=== PATIENT | female | born 1985 | race Caucasian/White ===

== ENCOUNTER 2016-04-15 16:49 | Inpatient (IN) | payer OTHER ==
[2016-04-15 17:20] VITALS: BMI 41.9
[2016-04-15] MEDS ORDERED: NICOTINE POLACRILEX 2 MG GUM BC PRN (20:04)
[2016-04-15] MEDS ORDERED: ACETAMINOPHEN 325 MG TABLET (FP) PO PRN (20:04)
[2016-04-15] MEDS ORDERED: guaiFENesin/D-METHORPHAN HB 10 ML UNIT-DOSE CUPS PO PRN (20:04)
[2016-04-15] MEDS ORDERED: MAGNESIUM CITRATE 300 ML BOTTLE PO PRN (20:04)
[2016-04-15] MEDS ORDERED: MAGNESIUM HYDROX 2400MG/30ML ORAL SUSPENSION 30 ML CUP PO PRN (20:04)
[2016-04-15] MEDS ORDERED: MENTHOL/PHENOL 1 EACH UD MM PRN (20:04)
[2016-04-15] MEDS ORDERED: P-EPHED 60MG/TRIPROLIDI 2.5MG TABLET PO PRN (20:04)
[2016-04-15] MEDS ORDERED: METHADONE HCL 10 MG TABLET (FOR DETOX USE ONLY) PO ONE ×2 (20:04→23:00)
[2016-04-15] MEDS ORDERED: diazePAM 5 MG TABLET PO ONE (20:04)
[2016-04-15] MEDS ORDERED: LOPERAMIDE HCL 2 MG CAPSULE PO PRN (20:04)
[2016-04-15] MEDS ORDERED: IBUPROFEN 400 MG TABLET (FP) PO PRN (20:04)
--- NOTE | 2016-04-15 20:04 | HP ---
COWS - Scale Resting Pulse: 1= [place] 81-100 Sweatin=Flushed/Facial Moisture Restless Observation: 3= Extraneous Movement Pupil Size: 1= Pupils >than Normal Bone or Joint Aches: 2= Severe Diffuse Aches Runny Nose/ Eye Tearin= Runny Nose/Eyes GI Upset > 30mins: 3= Vomiting/Diarrhea Tremor Observation: 2= Slight Tremor Visible Yawning Observation: 1= 1-2x During Session Anxiety or Irritability: 2=Irritable/Anxious Goose Flesh Skin: 3=Piloerection COWS Score: 22 CIWA Score - CIWA Score Nausea/Vomitin Muscle Tremors: 4-Moderate,w/Arms Extend Anxiety: 4-Mod. Anxious/Guarded Agitation: 4-Moderately Restless Paroxysmal Sweats: 2 Orientation: 1-Uncertain about Date Tacttile Disturbances: 0-None Auditory Disturbances: 0-None Visual Disturbances: 0-None Headache: 3-Moderate CIWA-Ar Total Score: 20 Admission ROS BHS - HPI Chief Complaint: WITHDRAWAL SX Allergies/Adverse Reactions: Allergies Allergy/AdvReac Type Severity Reaction Status Date / Time No Known Allergies Allergy Verified 04/15/16 17:35 History of Present Illness: 31 YEARS OLD FEMALE WITH LONG HISTORY OF HEROIN NICOTINE XANAX DEPENDENCE, HAS ASTHMA DENIES MENTAL ILLNESS IS ADMITTED TO DETOX Exam Limitations: No Limitations - Ebola screening Have you traveled outside of the country in the last 21 days: No Have you had contact with anyone from an Ebola affected area: No Have you been sick,other than usual withdrawal symptoms: No Do you have a fever: No - Review of Systems Constitutional: Chills, Changes in sleep, Weight Stable EENT: reports: No Symptoms Reported Respiratory: reports: No Symptoms reported Cardiac: reports: Palpitations GI: reports: Diarrhea, Nausea, Poor Fluid Intake, Vomiting, Abdominal cramping : reports: No Symptoms Reported Musculoskeletal: reports: Back Pain, Joint Pain, Muscle Pain, Neck Pain Integumentary: reports: No Symptoms Reported Neuro: reports: Tremors Endocrine: reports: No Symptoms Reported Hematology: reports: No Symptoms Reported Psychiatric: reports: Judgement Intact, Mood/Affect Appropiate Other Systems: Reviewed and Negative Patient History - Patient Medical History Hx Anemia: No Hx Asthma: Yes (Pt is on MDI) Hx Chronic Obstructive Pulmonary Disease (COPD): No Hx Cancer: No Hx Cardiac Disorders: No Hx Congestive Heart Failure: No Hx Hypertension: No Hx Hypercholesterolemia: No Hx Pacemaker: No HX Cerebrovascular Accident: No Hx Seizures: No Hx Dementia: No Hx Diabetes: No Hx Gastrointestinal Disorders: No Hx Liver Disease: No Hx Genitourinary Disorders: No Hx Sexually Transmitted Disorders: No Hx Renal Disease (ESRD): No Hx Thyroid Disease: No Hx Human Immunodeficiency Virus (HIV): No Hx Hepatitis C: No Hx Depression: No Hx Suicide Attempt: No Hx Bipolar Disorder: No Hx Schizophrenia: No - Patient Surgical History Past Surgical History: Yes Hx Neurologic Surgery: No Hx Cataract Extraction: No Hx Cardiac Surgery: No Hx Lung Surgery: No Hx Breast Surgery: No Hx Breast Biopsy: No Hx Abdominal Surgery: No Hx Appendectomy: No Hx Cholecystectomy: Yes (2007) Hx Genitourinary Surgery: No Hx Section: No Hx Orthopedic Surgery: No Hx Hysterectomy: No Anesthesia Reaction: No - PPD History Previous Implant?: Yes Documented Results: Negative w/o proof Implanted On Prior R Admission?: No PPD to be Administered?: Yes - Reproductive History Patient is a Female of Child Bearing Age (11 -55 yrs old): Yes Last Menstrual Period: 03/25/16 Patient : No - Smoking Cessation Smoking history: Current every day smoker Have you smoked in the past 12 months: Yes Aproximately how many cigarettes per day: 10 Hx Chewing Tobacco Use: No Initiated information on smoking cessation: Yes 'Breaking Loose' booklet given: 04/15/16 - Substance & Tx. History Hx Alcohol Use: No Hx Substance Use: Yes Substance Use Type: Heroin, Tranquilizers Hx Substance Use Treatment: No - Substances Abused Heroin Route: Inhalation Frequency: Daily Amount used: 20-30 BAGS Age of first use: 29 Date of Last Use: 04/14/16 klonopin Route: Oral Frequency: Daily Amount used: 6-8mg Age of first use: 29 Date of Last Use: 04/15/16 Family Disease History - Family Disease History Family Disease History: Diabetes: Mother, Heart Disease: Brother, CA: Father, Respiratory: Sister Admission Physical Exam BHS - Vital Signs Vital Signs: Vital Signs - 24 hr 04/15/16 17:17 Temperature 97.2 F L Pulse Rate 95 H Respiratory 20 Rate Blood Pressure 132/72 - Physical General Appearance: Yes: Nourished, Appropriately Dressed, Moderate Distress, Obese, Tremorous, Irritable, Sweating, Anxious HEENTM: Yes: Hearing grossly Normal, Normal ENT Inspection, Normocephalic, Normal Voice Respiratory: Yes: Chest Non-Tender, Lungs Clear, Normal Breath Sounds, No Respiratory Distress, No Accessory Muscle Use Neck: Yes: Supple, Trachea in good position Breast: Yes: Breasts Symetrical Cardiology: Yes: Regular Rhythm, Regular Rate, S1, S2 Abdominal: Yes: Non Tender, Soft Genitourinary: Yes: Within Normal Limits Back: Yes: Normal Inspection Musculoskeletal: Yes: full range of Motion, Gait Steady Extremities: Yes: Normal Range of Motion, Non-Tender, Tremors Neurological: Yes: Alert, Motor Strength 5/5, Normal Response Integumentary: Yes: Warm, Track [place] (OLD) Lymphatic: Yes: Within Normal Limits - Diagnostic (1) Opioid dependence with withdrawal Current Visit: Yes Status: Acute (2) Sedative, hypnotic or anxiolytic dependence with withdrawal, uncomplicated Current Visit: Yes Status: Acute (3) Asthma Current Visit: Yes Status: Acute Qualifiers: Asthma severity: mild intermittent Asthma complication type: with status asthmaticus Qualified Code(s): J45.22 - Mild intermittent asthma with status asthmaticus (4) Nicotine dependence Current Visit: Yes Status: Acute Qualifiers: Nicotine product type: cigarettes Substance use status: in withdrawal Qualified Code(s): F17.213 - Nicotine dependence, cigarettes, with withdrawal Cleared for Admission [facility] - Detox or Rehab [facility] Level of Care: Medically Managed Detox Regimen/Protocol: Methadone/Valium [facility] Breath Alcohol Content Breath Alcohol Content: 0 Urine Pregancy Test - Result Urine Test Results: Negative- NO Line Present Urine Drug Screen - Results Drug Screen Negative: No Urine Drug Screen Results: OPI-Opiates, BZO-Benzodiazepines
[2016-04-15] MEDS ORDERED: cloNIDine HCL 0.1 MG TABLET PO PRN (20:06)
[2016-04-15] MEDS ORDERED: ALBUTEROL SO4 6.7 GM HFA INHALER IH PRN (20:13)
[2016-04-15] MEDS: ONDANSETRON *ODT* 4 MG TABLET SL PRN (21:14)
[2016-04-15] MEDS: diazePAM 5 MG TABLET PO SCH (22:33)
[2016-04-15] MEDS: THIAMINE HCL 100 MG TABLET (FP) PO SCH (22:33)
[2016-04-15 23:13] LABS: URINE APPEARANCE CLEAR; URINE BILIRUBIN NEGATIVE (NEGATIVE); URINE BLOOD NEGATIVE (NEGATIVE); URINE COLOR YELLOW; URINE GLUCOSE (UA) NEGATIVE (NEGATIVE); URINE KETONE NEGATIVE (NEGATIVE); URINE LEUK ESTERASE NEGATIVE (NEGATIVE); URINE NITRITE NEGATIVE (NEGATIVE); URINE PROTEIN NEGATIVE (NEGATIVE); URINE UROBILINOGEN NEGATIVE E.U./dl (0.2-1.0)
[2016-04-16] MEDS: TRIMETHOBENZAMIDE HCL 200MG/2ML INJ IM PRN ×2 (00:47→09:03)
[2016-04-16] MEDS: diazePAM 5 MG TABLET PO PRN ×3 (01:35→19:21)
[2016-04-16] MEDS: diphenhydrAMINE HCL 50 MG CAPSULE PO PRN ×2 (01:35→22:29)
[2016-04-16] MEDS: diazePAM 5 MG TABLET PO SCH ×3 (05:52→22:29)
[2016-04-16] MEDS ORDERED: METHADONE HCL 10 MG TABLET (FOR DETOX USE ONLY) PO SCH (10:00)
[2016-04-16] MEDS: PRENATAL VITAMINS W/ FOLIC ACID TABLET (FP) PO SCH (10:14)
[2016-04-16] MEDS: NICOTINE 14 MG/24 HOURS TOPICAL PATCH TD SCH (10:14)
[2016-04-16 10:22] LABS: ALBUMIN 3.5 g/dl (3.4-5.0); CALCIUM 9.2 mg/dL (8.5-10.1); GLUCOSE,RANDOM 107 mg/dL (74-106)
[2016-04-16 10:26] LABS: MCH 30.2 pg (25.7-33.7); MCHC 32.8 g/dl (32.0-36.0); MEAN CELL VOLUME 92.1 fl (80-96); MEAN PLT VOLUME 8.4 fl (7.5-11.1); PLATELET COUNT 277 K/MM3 (134-434); RDW 13.5 % (11.6-15.6); WHITE BLOOD COUNT 14.8 K/mm3 (4.0-10.0)
[2016-04-16 10:27] LABS: ALK PHOS 69 U/L (45-117); ANION GAP 12 (8-16); BILIRUBIN,TOTAL 1.1 mg/dL (0.2-1.0); CO2 25 mmol/L (21-32); CREATININE 0.6 mg/dL (0.55-1.02); SGOT/AST 7 U/L (15-37); SGPT/ALT 15 U/L (12-78); TOT PROT 6.9 g/dl (6.4-8.2)
--- NOTE | 2016-04-16 10:32 | PN ---
[facility] CIWA - CIWA Score Nausea/Vomitin-Mild Nausea/No Vomiting Muscle Tremors: 4-Moderate,w/Arms Extend Anxiety: 3 Agitation: 4-Moderately Restless Paroxysmal Sweats: 3 Orientation: 0-Oriented Tacttile Disturbances: 0-None Auditory Disturbances: 0-None Visual Disturbances: 0-None Headache: 1-Very Mild CIWA-Ar Total Score: 16 BHS COWS - Scale Resting Pulse: 0= [place] 80 or Below Sweatin=Flushed/Facial Moisture Restless Observation: 1= Difficult to Sit Still Pupil Size: 0= Normal to Room Light Bone or Joint Aches: 2= Severe Diffuse Aches Runny Nose/ Eye Tearin= Nasal Congestion GI Upset > 30mins: 2= Nausea/Diarrhea Tremor Observation of Outstretched Hands: 2= Slight Tremor Visible Yawning Observation: 2= >3x During Session Anxiety or Irritability: 2=Irritable/Anxious Goose Flesh Skin: 0=Smooth Skin COWS Score: 14 S Progress Note (SOAP) Subjective: nausea vomiting sweats shakes interrupted sleep agitation anxiety body aches Objective: 04/16/16 10:30 Vital Signs Temperature 97.7 F 04/16/16 07:00 Pulse Rate 72 04/16/16 07:00 Respiratory Rate 18 04/16/16 07:00 Blood Pressure 122/79 04/16/16 07:00 O2 Sat by Pulse Oximetry (%) Laboratory Tests 04/15/16 04/16/16 04/16/16 23:00 07:00 07:00 WBC 14.8 H RBC 4.60 Hgb 13.9 Hct 42.3 MCV 92.1 MCHC 32.8 RDW 13.5 Plt Count 277 MPV 8.4 Sodium 144 Potassium 3.9 Chloride 107 BUN 9 Random Glucose 107 H Calcium 9.2 Albumin 3.5 Urine Color Yellow Urine Appearance Clear Urine pH 8.0 Ur Specific [place] 1.023 Urine Protein Negative Urine Glucose (UA) Negative Urine Ketones Negative Urine Blood Negative Urine Nitrite Negative Urine Bilirubin Negative Urine Urobilinogen Negative Ur Leukocyte Esterase Negative labs pending awake/alert lying in bed no acute distress Assessment: 04/16/16 10:31 withdrawal sx Plan: continue detox increase fluids labs pending reglan po before meals
[2016-04-16] MEDS: METOCLOPRAMIDE HCL 10 MG TABLET (FP) PO SCH ×2 (10:52→17:28)
--- NOTE | 2016-04-16 17:27 | PN ---
S Progress Note Note: RECEIVED NURSE CALL PATIENT VOMITED X 1 UNDIGESTED FOOD REGLAN 10 MG WILL BE ADMINISTERED CONTINUE DETOX
--- NOTE | 2016-04-16 17:43 | EKG ---
Test Reason : Blood Pressure : / mmHG Vent. Rate : 077 BPM Atrial Rate : 077 BPM P-R Int : 174 ms QRS Dur : 092 ms QT Int : 424 ms P-R-T Axes : 049 028 013 degrees QTc Int : 479 ms NORMAL SINUS RHYTHM SEPTAL INFARCT , AGE UNDETERMINED ABNORMAL ECG NO PREVIOUS ECGS AVAILABLE Confirmed by ZACARIAS WILSON MD ([id number]) on 04/16/2016 5:43:25 PM Referred By: Confirmed By:ZACARIAS WILSON MD
[2016-04-16] MEDS: ONDANSETRON *ODT* 4 MG TABLET SL PRN (18:08)
[2016-04-16] MEDS: MAG HYDROX/AL HYDROX/SIMETH 30 ML UNIT-DOSE CUP PO PRN (19:18)
[2016-04-16] MEDS: THIAMINE HCL 100 MG TABLET (FP) PO SCH (22:29)
[2016-04-17] MEDS: MAG HYDROX/AL HYDROX/SIMETH 30 ML UNIT-DOSE CUP PO PRN (00:42)
[2016-04-17] MEDS: diphenhydrAMINE HCL 50 MG CAPSULE PO PRN ×2 (00:42→23:40)
[2016-04-17] MEDS: diazePAM 5 MG TABLET PO PRN ×5 (00:42→23:40)
[2016-04-17] MEDS: METOCLOPRAMIDE HCL 10 MG TABLET (FP) PO SCH ×3 (08:00→17:10)
[2016-04-17] MEDS: METHADONE HCL 5 MG TABLET (FOR DETOX USE ONLY) PO SCH (10:08)
[2016-04-17] MEDS: PRENATAL VITAMINS W/ FOLIC ACID TABLET (FP) PO SCH (10:09)
[2016-04-17] MEDS: diazePAM 5 MG TABLET PO SCH ×2 (10:09→22:36)
[2016-04-17] MEDS: NICOTINE 14 MG/24 HOURS TOPICAL PATCH TD SCH ×2 (10:33→14:11)
[2016-04-17] MEDS ORDERED: PANTOPRAZOLE 40 MG TABLET (FP) PO ONE (10:55)
--- NOTE | 2016-04-17 13:19 | PN ---
[facility] CIWA - CIWA Score Nausea/Vomitin Muscle Tremors: 3 Anxiety: 3 Agitation: 2 Paroxysmal Sweats: 2 Orientation: 0-Oriented Tacttile Disturbances: 1-Very Mild Itch/Numbness Auditory Disturbances: 1-Very Mild Visual Disturbances: 1-Very Mild Sensitivity Headache: 2-Mild CIWA-Ar Total Score: 18 BHS COWS - Scale Resting Pulse: 1= [place] 81-100 Sweatin=Flushed/Facial Moisture Restless Observation: 3= Extraneous Movement Pupil Size: 1= Pupils >than Normal Bone or Joint Aches: 2= Severe Diffuse Aches Runny Nose/ Eye Tearin= Runny Nose/Eyes GI Upset > 30mins: 2= Nausea/Diarrhea Tremor Observation of Outstretched Hands: 2= Slight Tremor Visible Yawning Observation: 1= 1-2x During Session Anxiety or Irritability: 2=Irritable/Anxious Goose Flesh Skin: 0=Smooth Skin COWS Score: 18 S Progress Note (SOAP) Subjective: ALERT,IRRITABLE,ANXIOUS,INTERRUPTED SLEEP,TREMOR,PAIN IN THE BODY Objective: 04/17/16 13:17 Vital Signs Temperature 98.2 F 04/17/16 10:18 Pulse Rate 53 L 04/17/16 10:18 Respiratory Rate 18 04/17/16 10:18 Blood Pressure 131/79 04/17/16 10:18 O2 Sat by Pulse Oximetry (%) EKG NSR,INVERTED T IN 3 NO CHEST PAIN,NO SOB,NO DIZZINESS Laboratory Last Values WBC 14.8 K/mm3 (4.0-10.0) H 04/16/16 07:00 RBC 4.60 M/mm3 (3.60-5.2) 04/16/16 07:00 Hgb 13.9 GM/dL (10.7-15.3) 04/16/16 07:00 Hct 42.3 % (32.4-45.2) 04/16/16 07:00 MCV 92.1 fl (80-96) 04/16/16 07:00 MCHC 32.8 g/dl (32.0-36.0) 04/16/16 07:00 RDW 13.5 % (11.6-15.6) 04/16/16 07:00 Plt Count 277 K/MM3 (134-434) 04/16/16 07:00 MPV 8.4 fl (7.5-11.1) 04/16/16 07:00 Sodium 144 mmol/L (136-145) 04/16/16 07:00 Potassium 3.9 mmol/L (3.5-5.1) 04/16/16 07:00 Chloride 107 mmol/L (98-107) 04/16/16 07:00 Carbon Dioxide 25 mmol/L (21-32) 04/16/16 07:00 Anion Gap 12 (8-16) 04/16/16 07:00 BUN 9 mg/dL (7-18) 04/16/16 07:00 Creatinine 0.6 mg/dL (0.55-1.02) 04/16/16 07:00 Creat Clearance w eGFR > 60 (>60) 04/16/16 07:00 Random Glucose 107 mg/dL (74-106) H 04/16/16 07:00 Calcium 9.2 mg/dL (8.5-10.1) 04/16/16 07:00 Total Bilirubin 1.1 mg/dL (0.2-1.0) H 04/16/16 07:00 AST 7 U/L (15-37) L 04/16/16 07:00 ALT 15 U/L (12-78) 04/16/16 07:00 Alkaline Phosphatase 69 U/L (45-117) 04/16/16 07:00 Total Protein 6.9 g/dl (6.4-8.2) 04/16/16 07:00 Albumin 3.5 g/dl (3.4-5.0) 04/16/16 07:00 Urine Color Yellow 04/15/16 23:00 Urine Appearance Clear 04/15/16 23:00 Urine pH 8.0 (5.0-8.0) 04/15/16 23:00 Ur Specific [place] 1.023 (1.001-1.035) 04/15/16 23:00 Urine Protein Negative (NEGATIVE) 04/15/16 23:00 Urine Glucose (UA) Negative (NEGATIVE) 04/15/16 23:00 Urine Ketones Negative (NEGATIVE) 04/15/16 23:00 Urine Blood Negative (NEGATIVE) 04/15/16 23:00 Urine Nitrite Negative (NEGATIVE) 04/15/16 23:00 Urine Bilirubin Negative (NEGATIVE) 04/15/16 23:00 Urine Urobilinogen Negative E.U./dl (0.2-1.0) 04/15/16 23:00 Ur Leukocyte Esterase Negative (NEGATIVE) 04/15/16 23:00 RPR Titer Nonreactive (NONREACTIVE) 04/16/16 07:00 Assessment: 04/17/16 13:18 WITHDRAWAL SYMPTOM Plan: CONTINUE DETOX,ENCOURAGE ORAL FLUID,REPEAT CBC IN AM
[2016-04-17] MEDS: THIAMINE HCL 100 MG TABLET (FP) PO SCH (22:35)
[2016-04-18] MEDS: METOCLOPRAMIDE HCL 10 MG TABLET (FP) PO SCH ×3 (06:28→18:55)
[2016-04-18] MEDS: diazePAM 5 MG TABLET PO PRN ×2 (09:23→18:21)
[2016-04-18 09:29] LABS: PLATELET COUNT 245 K/MM3 (134-434); RDW 13.2 % (11.6-15.6); WHITE BLOOD COUNT 5.3 K/mm3 (4.0-10.0)
--- NOTE | 2016-04-18 10:09 | CONSULT ---
[facility] Psychiatric Consult - Data Date of interview: 04/18/16 Admission source: [facility] Identifying data: This is 31 years old female with no psychiatric hospitalization history intoxicated with : Klonopin,. Heropn and Nicotine. As per nursing stuff patient asking psychiatric evaluation for anxiety Substance Abuse History: - Smoking Cessation. Smoking history: Current every day smoker. Have you smoked in the past 12 months: Yes. Aproximately how many cigarettes per day: 10. Hx Chewing Tobacco Use: No. Initiated information on smoking cessation: Yes. 'Breaking Loose' booklet given: 04/15/16. - Substance & Tx. History. Hx Alcohol Use: No. Hx Substance Use: Yes. Substance Use Type : Heroin, Tranquilizers. Hx Substance Use Treatment: No. - Substances Abused. Heroin. Route: Inhalation. Frequency: Daily. Amount used: 20-30 BAGS. Age of first use: 29. Date of Last Use: 04/14/16. klonopin. Route: Oral. Frequency: Daily. Amount used: 6-8mg. Age of first use: 29. Date of Last Use : 04/15/16 Medical History: Obesity Psychiatric History: Patient reports severe anxiety , asking for opharmacological intervention, reports not sleeping at all and asking for help. Reports no medicastions taking prior to admission. Rep[orets good reports to Seroquel for insomnia in trevor past (200mg) Physical/Sexual Abuse/Trauma History: Denies Additional Comment: Vistaril 50mg po q6 for anxiety. Seroquel 200mg po qhs Mental Status Exam - Mental Status Exam Alert and Oriented to: Person Cognitive Function: Fair Patient Appearance: Unkempt Mood: Anxious Affect: Mood Congruent Patient Behavior: Cooperative Speech Pattern: Appropriate Voice Loudness: Normal Thought Process: Goal Oriented Thought Disorder: Being Controlled Hallucinations: Denies Suicidal Ideation: Denies Homicidal Ideation: Denies Insight/Judgement: Fair Sleep: Difficulty falling asleep Appetite: Weight gain Muscle strength/Tone: Normal Gait/Station: Normal Additional Comments: Vistaril 50mg po q6 for anxiety. Seroquel 200mg po qhs Psychiatric Findings - Problem List ([place] 1, 2,3) (1) Nicotine dependence Current Visit: Yes Status: Acute Qualifiers: Nicotine product type: cigarettes Substance use status: in withdrawal Qualified Code(s): F17.213 - Nicotine dependence, cigarettes, with withdrawal (2) Opioid dependence with withdrawal Current Visit: Yes Status: Acute (3) Sedative, hypnotic or anxiolytic dependence with withdrawal, uncomplicated Current Visit: Yes Status: Acute (4) Opioid-induced sleep disorder Current Visit: Yes Status: Acute (5) Drug-induced mood disorder Current Visit: Yes Status: Acute - Initial Treatment Plan Initial Treatment Plan: Vistaril 50mg po q6 for anxiety. Seroquel 200mg po qhs
[2016-04-18] MEDS: PRENATAL VITAMINS W/ FOLIC ACID TABLET (FP) PO SCH (10:44)
[2016-04-18] MEDS: METHADONE HCL 5 MG TABLET (FOR DETOX USE ONLY) PO SCH (10:44)
[2016-04-18] MEDS: diazePAM 5 MG TABLET PO SCH ×2 (10:45→22:19)
[2016-04-18] MEDS: PANTOPRAZOLE 40 MG TABLET (FP) PO SCH (10:45)
[2016-04-18] MEDS: NICOTINE 14 MG/24 HOURS TOPICAL PATCH TD SCH (10:47)
[2016-04-18] MEDS: hydrOXYzine PAMOATE 50 MG CAPSULE (FP) PO PRN ×2 (13:08→22:21)
--- NOTE | 2016-04-18 14:02 | PN ---
BHS Progress Note (SOAP) Subjective: anxiety sweats body aches no N/V Objective: 04/18/16 14:01 Vital Signs Temperature 98.1 F 04/18/16 10:19 Pulse Rate 55 L 04/18/16 10:19 Respiratory Rate 18 04/18/16 10:19 Blood Pressure 123/69 04/18/16 10:19 O2 Sat by Pulse Oximetry (%) Laboratory Tests 04/15/16 04/16/16 04/16/16 23:00 07:00 07:00 WBC 14.8 H RBC 4.60 Hgb 13.9 Hct 42.3 MCV 92.1 MCHC 32.8 RDW 13.5 Plt Count 277 MPV 8.4 Sodium 144 Potassium 3.9 Chloride 107 Carbon Dioxide 25 Anion Gap 12 BUN 9 Creatinine 0.6 Creat Clearance w eGFR > 60 Random Glucose 107 H Calcium 9.2 Total Bilirubin 1.1 H AST 7 L ALT 15 Alkaline Phosphatase 69 Total Protein 6.9 Albumin 3.5 Urine Color Yellow Urine Appearance Clear Urine pH 8.0 Ur Specific [place] 1.023 Urine Protein Negative Urine Glucose (UA) Negative Urine Ketones Negative Urine Blood Negative Urine Nitrite Negative Urine Bilirubin Negative Urine Urobilinogen Negative Ur Leukocyte Esterase Negative RPR Titer 04/16/16 04/18/16 07:00 06:30 WBC 5.3 D RBC 3.98 Hgb 12.3 D Hct 37.4 MCV 94.0 MCHC 33.0 RDW 13.2 Plt Count 245 MPV 9.0 Sodium Potassium Chloride Carbon Dioxide Anion Gap BUN Creatinine Creat Clearance w eGFR Random Glucose Calcium Total Bilirubin AST ALT Alkaline Phosphatase Total Protein Albumin Urine Color Urine Appearance Urine pH Ur Specific [place] Urine Protein Urine Glucose (UA) Urine Ketones Urine Blood Urine Nitrite Urine Bilirubin Urine Urobilinogen Ur Leukocyte Esterase RPR Titer Nonreactive awake/alert ambulating no acute distress Assessment: 04/18/16 14:02 withdrawal sx Plan: continue detox increase fluids
[2016-04-18] MEDS ORDERED: QUEtiapine FUMARATE 200 MG TABLET PO SCH (22:00)
[2016-04-18] MEDS: THIAMINE HCL 100 MG TABLET (FP) PO SCH (22:18)
[2016-04-19] MEDS: hydrOXYzine PAMOATE 50 MG CAPSULE (FP) PO PRN ×2 (05:47→10:20)
[2016-04-19] MEDS: METOCLOPRAMIDE HCL 10 MG TABLET (FP) PO SCH ×2 (07:42→11:06)
[2016-04-19] MEDS ORDERED: METHADONE HCL 10 MG TABLET (FOR DETOX USE ONLY) PO SCH (10:00)
[2016-04-19] MEDS ORDERED: diazePAM 5 MG TABLET PO SCH (10:00)
[2016-04-19] MEDS: PANTOPRAZOLE 40 MG TABLET (FP) PO SCH (10:18)
[2016-04-19 10:38] VITALS: BP 120/74; PULSE 86; TEMP 99.3
[2016-04-19] MEDS: NICOTINE 14 MG/24 HOURS TOPICAL PATCH TD SCH (11:05)
[2016-04-19] MEDS: PRENATAL VITAMINS W/ FOLIC ACID TABLET (FP) PO SCH (11:06)
--- NOTE | 2016-04-19 11:43 | DS ---
[facility] Detox Discharge Summary Admission Date: 04/15/16 Discharge Date: 04/19/16 - History Present History: Opioid Dependence, Sedative Dependence - Physical Exam Results Vital Signs: Vital Signs Temperature 99.3 F 04/19/16 10:37 Pulse Rate 86 04/19/16 10:37 Respiratory Rate 18 04/19/16 10:37 Blood Pressure 120/74 04/19/16 10:37 O2 Sat by Pulse Oximetry (%) - Treatment Hospital Course: Detox Protocol Followed, Detoxed Safely, Responded well, Discharged Condition Good, Rehab Referral Accepted - Medication Discharge Medications: Ambulatory Orders Albuterol Sulfate Inhaler - [Ventolin Hfa Inhaler -] 2 inh PO Q4H PRN 04/15/16 Hydroxyzine Pamoate [Vistaril -] 50 mg PO Q4H PRN #60 capsule 04/18/16 Quetiapine Fumarate [Seroquel -] 200 mg PO HS #30 tab 04/18/16 - Diagnosis (1) Asthma Status: Chronic Qualifiers: Asthma severity: mild intermittent Asthma complication type: with status asthmaticus Qualified Code(s): J45.22 - Mild intermittent asthma with status asthmaticus (2) Drug-induced mood disorder Status: Acute (3) Nicotine dependence Status: Chronic Qualifiers: Nicotine product type: cigarettes Substance use status: uncomplicated Qualified Code(s): F17.210 - Nicotine dependence, cigarettes, uncomplicated (4) Opioid dependence with withdrawal Status: Chronic (5) Opioid-induced sleep disorder Status: Chronic (6) Sedative, hypnotic or anxiolytic dependence with withdrawal, uncomplicated Status: Chronic - AMA Did Patient Leave Against Medical Advice: No
[2016-04-20] MEDS ORDERED: METHADONE HCL 5 MG TABLET (FOR DETOX USE ONLY) PO SCH (06:00)
== END 2016-04-19 11:02 | disposition home or self-care (01) | DRG 773 ==
LOC: YASAS 16:49 → Y6N 19:29
PROVIDERS: ADMIT Internal Medicine; ATTEND Internal Medicine
PROC: HZ2ZZZZ Detoxification Services for Substance Abuse Treatment (ICD-10-PCS; principal; 2016-04-19)
DX: F11.23 Opioid dependence with withdrawal (principal); F10.230 Alcohol dependence with withdrawal, uncomplicated; F17.210 Nicotine dependence, cigarettes, uncomplicated; F19.282 Other psychoactive substance dependence with psychoactive substance-induced sleep disorder; F19.24 Other psychoactive substance dependence with psychoactive substance-induced mood disorder; J45.22 Mild intermittent asthma with status asthmaticus
CPT/HCPCS: 36415; 80053; 81003; 85027; 86593; 93005; 93010

== ENCOUNTER 2016-11-29 12:43 | Inpatient (IN) | payer OTHER ==
[2016-11-29 15:52] VITALS: BMI 36.3
--- NOTE | 2016-11-29 17:01 | HP ---
COWS - Scale Resting Pulse: 2= [place] 101-120 Sweatin= Chills/Flushing Restless Observation: 1= Difficult to Sit Still Pupil Size: 0= Normal to Room Light Bone or Joint Aches: 2= Severe Diffuse Aches Runny Nose/ Eye Tearin= Nasal Congestion GI Upset > 30mins: 3= Vomiting/Diarrhea Tremor Observation: 2= Slight Tremor Visible Yawning Observation: 0= None Anxiety or Irritability: 2=Irritable/Anxious Goose Flesh Skin: 0=Smooth Skin COWS Score: 14 CIWA Score - CIWA Score Nausea/Vomitin Muscle Tremors: 3 Anxiety: 4-Mod. Anxious/Guarded Agitation: 3 Paroxysmal Sweats: 1-Minimal Palms Moist Orientation: 0-Oriented Tacttile Disturbances: 0-None Auditory Disturbances: 0-None Visual Disturbances: 0-None Headache: 1-Very Mild CIWA-Ar Total Score: 14 Admission [facility] - HPI Chief Complaint: withdrawal sx Allergies/Adverse Reactions: Allergies Allergy/AdvReac Type Severity Reaction Status Date / Time No Known Allergies Allergy Verified 11/29/16 17:15 History of Present Illness: 31 years old female with long history of opiate xanax nicotine dependence, has asthma and depression is admitted to detox Exam Limitations: No Limitations - Ebola screening Have you traveled outside of the country in the last 21 days: No Have you had contact with anyone from an Ebola affected area: No Have you been sick,other than usual withdrawal symptoms: No Do you have a fever: No - Review of Systems Constitutional: Changes in sleep, Weight Stable EENT: reports: No Symptoms Reported Respiratory: reports: SOB with Exertion Cardiac: reports: No Symptoms Reported GI: reports: Nausea, Poor Fluid Intake, Vomiting, Abdominal cramping : reports: No Symptoms Reported Musculoskeletal: reports: Back Pain, Joint Pain, Muscle Pain, Neck Pain Integumentary: reports: Change in Color (left fore arm) Neuro: reports: Tremors Endocrine: reports: No Symptoms Reported Hematology: reports: No Symptoms Reported Psychiatric: reports: Judgement Intact, Orientated x3, Anxious, Depressed Other Systems: Reviewed and Negative Patient History - Patient Medical History Hx Anemia: No Hx Asthma: Yes (Pt is on MDI) Hx Chronic Obstructive Pulmonary Disease (COPD): No Hx Cancer: No Hx Cardiac Disorders: No Hx Congestive Heart Failure: No Hx Hypertension: No Hx Hypercholesterolemia: No Hx Pacemaker: No HX Cerebrovascular Accident: No Hx Seizures: No Hx Dementia: No Hx Diabetes: No Hx Gastrointestinal Disorders: No Hx Liver Disease: No Hx Genitourinary Disorders: No Hx Sexually Transmitted Disorders: No Hx Renal Disease (ESRD): No Hx Thyroid Disease: No Hx Human Immunodeficiency Virus (HIV): No Hx Hepatitis C: No Hx Depression: Yes Hx Suicide Attempt: No Hx Bipolar Disorder: No Hx Schizophrenia: No - Patient Surgical History Past Surgical History: Yes Hx Neurologic Surgery: No Hx Cataract Extraction: No Hx Cardiac Surgery: No Hx Lung Surgery: No Hx Breast Surgery: No Hx Breast Biopsy: No Hx Abdominal Surgery: No Hx Appendectomy: No Hx Cholecystectomy: Yes (2007) Hx Genitourinary Surgery: No Hx Section: No Hx Orthopedic Surgery: No Hx Hysterectomy: No Anesthesia Reaction: No - PPD History Previous Implant?: Yes Documented Results: Negative w/o proof Implanted On Prior R Admission?: Yes Date: 04/17/16 PPD to be Administered?: No - Reproductive History Patient is a Female of Child Bearing Age (11 -55 yrs old): Yes Last Menstrual Period: 11/03/16 Patient : No - Smoking Cessation Smoking history: Current every day smoker Have you smoked in the past 12 months: Yes Aproximately how many cigarettes per day: 15 Cigars Per Day: 0 Hx Chewing Tobacco Use: No Initiated information on smoking cessation: Yes 'Breaking Loose' booklet given: 11/29/16 - Substance & Tx. History Hx Alcohol Use: No Hx Substance Use: Yes Substance Use Type: Heroin, Tranquilizers Hx Substance Use Treatment: Yes (04/15-04/19/16 [facility]) - Substances Abused Heroin Route: Injection Frequency: Daily Amount used: 20 bags Age of first use: 29 Date of Last Use: 11/29/16 Alprazolam (Xanax) Route: Oral Frequency: Daily Amount used: 8-10 mg Age of first use: 29 Date of Last Use: 11/28/16 Family Disease History - Family Disease History Family Disease History: Diabetes: Mother, Heart Disease: Brother, CA: Father, Respiratory: Sister Admission Physical Exam [facility] - Vital Signs Vital Signs: Vital Signs - 24 hr 11/29/16 15:47 Temperature 97.5 F L Pulse Rate 104 H Respiratory 18 Rate Blood Pressure 125/79 - Physical General Appearance: Yes: Appropriately Dressed, Mild Distress, Obese, Tremorous , Irritable, Sweating, Anxious HEENTM: Yes: Hearing grossly Normal, Normal ENT Inspection, Normocephalic, Normal Voice Respiratory: Yes: Chest Non-Tender, Lungs Clear, Normal Breath Sounds, No Respiratory Distress, No Accessory Muscle Use Neck: Yes: Supple, Trachea in good position Cardiology: Yes: Regular Rhythm, S1, S2, Tachycardia (cocaine prior to [facility] arrival) Abdominal: Yes: Non Tender, Soft, Increased Bowel Sounds Genitourinary: Yes: Within Normal Limits Back: Yes: Normal Inspection Musculoskeletal: Yes: full range of Motion, Gait Steady, Back pain, Muscle Pain Extremities: Yes: Normal Inspection, Normal Range of Motion, Non-Tender, Tremors Neurological: Yes: Fully Oriented, Alert, Motor Strength 5/5, Normal Response, Depressed Affect Integumentary: Yes: Warm, Track [place] Lymphatic: Yes: Within Normal Limits - Diagnostic (1) Asthma Current Visit: Yes Status: Chronic Qualifiers: Asthma severity: mild intermittent Asthma complication type: with status asthmaticus Qualified Code(s): J45.22 - Mild intermittent asthma with status asthmaticus (2) Nicotine dependence Current Visit: Yes Status: Acute Qualifiers: Nicotine product type: cigarettes Substance use status: in withdrawal Qualified Code(s): F17.213 - Nicotine dependence, cigarettes, with withdrawal (3) Opioid dependence with withdrawal Current Visit: Yes Status: Acute (4) Sedative, hypnotic or anxiolytic dependence with withdrawal, uncomplicated Current Visit: Yes Status: Acute (5) Depression (emotion) Current Visit: Yes Status: Suspected Qualifiers: Depression Type: dysthymia Qualified Code(s): F34.1 - Dysthymic disorder Cleared for Admission [facility] - Detox or Rehab [facility] Level of Care: Medically Managed Detox Regimen/Protocol: Methadone/Valium [facility] Breath Alcohol Content Breath Alcohol Content: 0 Urine Pregancy Test - Result Urine Test Results: Negative- NO Line Present Urine Drug Screen - Results Drug Screen Negative: No Urine Drug Screen Results: EDIS-Cocaine, OPI-Opiates, BZO-Benzodiazepines, TCA- Tricyclic Antidepress, OXY-Oxycodone
[2016-11-29] MEDS ORDERED: MENTHOL/PHENOL 1 EACH UD MM PRN (17:14)
[2016-11-29] MEDS ORDERED: P-EPHED 60MG/TRIPROLIDI 2.5MG TABLET PO PRN (17:14)
[2016-11-29] MEDS ORDERED: diazePAM 5 MG TABLET PO ONE (17:14)
[2016-11-29] MEDS ORDERED: MAGNESIUM HYDROX 2400MG/30ML ORAL SUSPENSION 30 ML CUP PO PRN (17:14)
[2016-11-29] MEDS ORDERED: IBUPROFEN 400 MG TABLET (FP) PO PRN (17:14)
[2016-11-29] MEDS ORDERED: MAG HYDROX/AL HYDROX/SIMETH 30 ML UNIT-DOSE CUP PO PRN (17:14)
[2016-11-29] MEDS ORDERED: ACETAMINOPHEN 325 MG TABLET (FP) PO PRN (17:14)
[2016-11-29] MEDS ORDERED: MAGNESIUM CITRATE 300 ML BOTTLE PO PRN (17:14)
[2016-11-29] MEDS ORDERED: LOPERAMIDE HCL 2 MG CAPSULE PO PRN (17:14)
[2016-11-29] MEDS ORDERED: METHADONE HCL 10 MG TABLET (FOR DETOX USE ONLY) PO ONE ×2 (17:14→23:00)
[2016-11-29] MEDS ORDERED: guaiFENesin/D-METHORPHAN HB 10 ML UNIT-DOSE CUPS PO PRN (17:14)
[2016-11-29] MEDS ORDERED: NICOTINE POLACRILEX 4 MG GUM BC PRN (17:14)
[2016-11-29] MEDS ORDERED: METHADONE HCL 10 MG TABLET (FOR DETOX USE ONLY) ONE (19:39)
[2016-11-29 21:57] LABS: URINE APPEARANCE CLEAR; URINE BILIRUBIN 1+ (NEGATIVE); URINE BLOOD 1+ (NEGATIVE); URINE COLOR YELLOW; URINE GLUCOSE (UA) NEGATIVE (NEGATIVE); URINE KETONE NEGATIVE (NEGATIVE); URINE LEUK ESTERASE NEGATIVE (NEGATIVE); URINE NITRITE NEGATIVE (NEGATIVE); URINE PROTEIN TRACE (NEGATIVE); URINE UROBILINOGEN 0.2 mg/dL (0.2-1.0)
[2016-11-29 22:31] LABS: URINE BACTERIA RARE /hpf (NONE SEEN); URINE MUCUS MANY; URINE RBC 3 /hpf (0-3); URINE WBC 13 /hpf (3-5)
[2016-11-29] MEDS: THIAMINE HCL 100 MG TABLET (FP) PO SCH (22:44)
[2016-11-29] MEDS: diazePAM 5 MG TABLET PO SCH (22:44)
[2016-11-30] MEDS: ALBUTEROL SO4 6.7 GM HFA INHALER IH PRN ×2 (06:06→22:31)
[2016-11-30] MEDS: diazePAM 5 MG TABLET PO SCH ×3 (06:06→22:31)
--- NOTE | 2016-11-30 09:50 | EKG ---
Test Reason : Blood Pressure : / mmHG Vent. Rate : 077 BPM Atrial Rate : 077 BPM P-R Int : 184 ms QRS Dur : 092 ms QT Int : 400 ms P-R-T Axes : 052 026 014 degrees QTc Int : 452 ms NORMAL SINUS RHYTHM WITH SINUS ARRHYTHMIA NONSPECIFIC T WAVE ABNORMALITY ABNORMAL ECG Confirmed by MD HOMAR, KATHERINE ([id number]) on 11/30/2016 9:50:12 AM Referred By: Confirmed By:KATHERINE GRAF MD
[2016-11-30] MEDS ORDERED: METHADONE HCL 10 MG TABLET (FOR DETOX USE ONLY) PO SCH (10:00)
[2016-11-30 10:26] LABS: MCH 31.4 pg (25.7-33.7); MCHC 33.6 g/dl (32.0-36.0); MEAN CELL VOLUME 93.5 fl (80-96); MEAN PLT VOLUME 7.3 fl (7.5-11.1); PLATELET COUNT 230 K/MM3 (134-434); WHITE BLOOD COUNT 7.1 K/mm3 (4.0-10.0)
[2016-11-30] MEDS: PRENATAL VITAMINS W/ FOLIC ACID TABLET (FP) PO SCH (10:41)
[2016-11-30] MEDS: diazePAM 5 MG TABLET PO PRN ×3 (10:42→23:40)
[2016-11-30] MEDS: NICOTINE 21 MG/24 HOURS TOPICAL PATCH TD SCH (10:43)
[2016-11-30 11:35] LABS: ALBUMIN 2.7 g/dl (3.4-5.0); ALK PHOS 62 U/L (45-117); ANION GAP 5 (8-16); BILIRUBIN,TOTAL 0.7 mg/dL (0.2-1.0); CALCIUM 8.1 mg/dL (8.5-10.1); CO2 27 mmol/L (21-32); CREATININE 0.6 mg/dL (0.55-1.02); GLUCOSE,RANDOM 79 mg/dL (74-106); SGOT/AST 10 U/L (15-37); SGPT/ALT 15 U/L (12-78); TOT PROT 5.3 g/dl (6.4-8.2)
[2016-11-30 12:44] LABS: HIV 1 & 2 AB NEGATIVE; HIV 1 AGp24 NEGATIVE
--- NOTE | 2016-11-30 15:11 | PN ---
[facility] CIWA - CIWA Score Nausea/Vomitin Muscle Tremors: 3 Anxiety: 3 Agitation: 2 Paroxysmal Sweats: 1-Minimal Palms Moist Orientation: 0-Oriented Tacttile Disturbances: 1-Very Mild Itch/Numbness Auditory Disturbances: 1-Very Mild Visual Disturbances: 1-Very Mild Sensitivity Headache: 2-Mild CIWA-Ar Total Score: 17 [facility] COWS - Scale Resting Pulse: 0= [place] 80 or Below Sweatin= Chills/Flushing Restless Observation: 3= Extraneous Movement Pupil Size: 1= Pupils >than Normal Bone or Joint Aches: 2= Severe Diffuse Aches Runny Nose/ Eye Tearin= Runny Nose/Eyes GI Upset > 30mins: 3= Vomiting/Diarrhea Tremor Observation of Outstretched Hands: 2= Slight Tremor Visible Yawning Observation: 1= 1-2x During Session Anxiety or Irritability: 2=Irritable/Anxious Goose Flesh Skin: 0=Smooth Skin COWS Score: 17 [facility] Progress Note (SOAP) Subjective: alert,irritable,anxious,interrupted sleep,tremor,pain in the body and back Objective: 11/30/16 15:06 Vital Signs Temperature 97.5 F L 11/30/16 11:15 Pulse Rate 76 11/30/16 11:15 Respiratory Rate 18 11/30/16 11:15 Blood Pressure 121/71 11/30/16 11:15 O2 Sat by Pulse Oximetry (%) 11/30/16 15:09 11/30/16 15:09 ekg nsr with sinus arrhythmia inverted t wave in lead 3 no chest pain,no sob,no dizziness Assessment: 11/30/16 15:11 withdrawal symptom Plan: continue detox
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
[2016-11-30] MEDS: THIAMINE HCL 100 MG TABLET (FP) PO SCH (22:30)
[2016-11-30] MEDS: ZOLPIDEM TARTRATE 5 MG TABLET PO PRN (22:30)
[2016-12-01] MEDS: diazePAM 5 MG TABLET PO PRN ×3 (08:40→17:37)
--- NOTE | 2016-12-01 08:46 | EKG ---
Test Reason : Blood Pressure : / mmHG Vent. Rate : 058 BPM Atrial Rate : 058 BPM P-R Int : 188 ms QRS Dur : 082 ms QT Int : 460 ms P-R-T Axes : 015 031 001 degrees QTc Int : 451 ms SINUS BRADYCARDIA OTHERWISE NORMAL ECG Confirmed by MD HOMAR, KATHERINE ([id number]) on 12/01/2016 8:45:43 AM Referred By: Confirmed By:KATHERINE GRAF MD
[2016-12-01] MEDS: diazePAM 5 MG TABLET PO SCH ×2 (10:34→22:22)
[2016-12-01] MEDS: PRENATAL VITAMINS W/ FOLIC ACID TABLET (FP) PO SCH (10:34)
[2016-12-01] MEDS: METHADONE HCL 5 MG TABLET (FOR DETOX USE ONLY) PO SCH (10:34)
[2016-12-01] MEDS: NICOTINE 21 MG/24 HOURS TOPICAL PATCH TD SCH (10:35)
--- NOTE | 2016-12-01 11:03 | PN ---
S CIWA - CIWA Score Nausea/Vomitin Muscle Tremors: 3 Anxiety: 3 Agitation: 2 Paroxysmal Sweats: 1-Minimal Palms Moist Orientation: 0-Oriented Tacttile Disturbances: 1-Very Mild Itch/Numbness Auditory Disturbances: 1-Very Mild Visual Disturbances: 0-None Headache: 2-Mild CIWA-Ar Total Score: 16 [facility] COWS - Scale Resting Pulse: 0= [place] 80 or Below Sweatin= Chills/Flushing Restless Observation: 3= Extraneous Movement Pupil Size: 1= Pupils >than Normal Bone or Joint Aches: 2= Severe Diffuse Aches Runny Nose/ Eye Tearin= Runny Nose/Eyes GI Upset > 30mins: 3= Vomiting/Diarrhea Tremor Observation of Outstretched Hands: 2= Slight Tremor Visible Yawning Observation: 1= 1-2x During Session Anxiety or Irritability: 2=Irritable/Anxious Goose Flesh Skin: 0=Smooth Skin COWS Score: 17 S Progress Note (SOAP) Subjective: ALERT,IRRITABLE,ANXIOUS,TREMOR,PAIN IN THE BODY AND BACK Objective: 12/01/16 11:02 Vital Signs Temperature 98.1 F 12/01/16 10:07 Pulse Rate 64 12/01/16 10:07 Respiratory Rate 20 12/01/16 10:07 Blood Pressure 102/59 12/01/16 10:07 O2 Sat by Pulse Oximetry (%) Laboratory Last Values WBC 7.1 K/mm3 (4.0-10.0) D 11/30/16 08:00 RBC 4.00 M/mm3 (3.60-5.2) 11/30/16 08:00 Hgb 12.6 GM/dL (10.7-15.3) 11/30/16 08:00 Hct 37.4 % (32.4-45.2) 11/30/16 08:00 MCV 93.5 fl (80-96) 11/30/16 08:00 MCH 31.4 pg (25.7-33.7) 11/30/16 08:00 MCHC 33.6 g/dl (32.0-36.0) 11/30/16 08:00 RDW 13.0 % (11.6-15.6) 11/30/16 08:00 Plt Count 230 K/MM3 (134-434) 11/30/16 08:00 MPV 7.3 fl (7.5-11.1) L D 11/30/16 08:00 Sodium 141 mmol/L (136-145) 11/30/16 08:00 Potassium 4.1 mmol/L (3.5-5.1) 11/30/16 08:00 Chloride 109 mmol/L (98-107) H 11/30/16 08:00 Carbon Dioxide 27 mmol/L (21-32) 11/30/16 08:00 Anion Gap 5 (8-16) L 11/30/16 08:00 BUN 11 mg/dL (7-18) D 11/30/16 08:00 Creatinine 0.6 mg/dL (0.55-1.02) 11/30/16 08:00 Creat Clearance w eGFR > 60 (>60) 11/30/16 08:00 Random Glucose 79 mg/dL (74-106) D 11/30/16 08:00 Calcium 8.1 mg/dL (8.5-10.1) L 11/30/16 08:00 Total Bilirubin 0.7 mg/dL (0.2-1.0) D 11/30/16 08:00 AST 10 U/L (15-37) L D 11/30/16 08:00 ALT 15 U/L (12-78) 11/30/16 08:00 Alkaline Phosphatase 62 U/L (45-117) 11/30/16 08:00 Total Protein 5.3 g/dl (6.4-8.2) L D 11/30/16 08:00 Albumin 2.7 g/dl (3.4-5.0) L D 11/30/16 08:00 Urine Color Yellow 11/29/16 21:46 Urine Appearance Clear 11/29/16 21:46 Urine pH 5.0 (5.0-8.0) D 11/29/16 21:46 Ur Specific [place] >= 1.030 (1.005-1.025) H 11/29/16 21:46 Urine Protein Trace (NEGATIVE) H 11/29/16 21:46 Urine Glucose (UA) Negative (NEGATIVE) 11/29/16 21:46 Urine Ketones Negative (NEGATIVE) 11/29/16 21:46 Urine Blood 1+ (NEGATIVE) H 11/29/16 21:46 Urine Nitrite Negative (NEGATIVE) 11/29/16 21:46 Urine Bilirubin 1+ (NEGATIVE) H 11/29/16 21:46 Urine Urobilinogen 0.2 mg/dL (0.2-1.0) 11/29/16 21:46 Urine RBC 3 /hpf (0-3) 11/29/16 21:46 Urine WBC 13 /hpf (3-5) 11/29/16 21:46 Ur Epithelial Cells Many /hpf (FEW) 11/29/16 21:46 Urine Bacteria Rare /hpf (NONE SEEN) 11/29/16 21:46 Urine Mucus Many 11/29/16 21:46 RPR Titer Nonreactive (NONREACTIVE) 11/30/16 08:00 Hepatitis C Antibody 0.1 s/co ratio (0.0-0.9) 11/30/16 08:00 HIV 1&2 Antibody Screen Negative 11/30/16 08:00 HIV P24 Antigen Negative 11/30/16 08:00 Assessment: 12/01/16 11:02 WITHDRAWAL SYMPTOM Plan: CONTINUE DETOX
[2016-12-01] MEDS: LIDOCAINE 5% TOPICAL PATCH TP SCH (13:02)
[2016-12-01] MEDS: LIDOCAINE PATCH REMOVAL MC SCH (21:30)
[2016-12-01] MEDS: THIAMINE HCL 100 MG TABLET (FP) PO SCH (22:22)
[2016-12-01] MEDS: ZOLPIDEM TARTRATE 5 MG TABLET PO PRN (22:22)
[2016-12-02] MEDS: diazePAM 5 MG TABLET PO PRN ×4 (00:01→16:59)
[2016-12-02] MEDS: diphenhydrAMINE HCL 50 MG CAPSULE PO PRN (00:02)
[2016-12-02] MEDS: METHADONE HCL 5 MG TABLET (FOR DETOX USE ONLY) PO SCH (10:26)
[2016-12-02] MEDS: diazePAM 5 MG TABLET PO SCH ×2 (10:26→22:37)
[2016-12-02] MEDS: PRENATAL VITAMINS W/ FOLIC ACID TABLET (FP) PO SCH (10:26)
[2016-12-02] MEDS: LIDOCAINE 5% TOPICAL PATCH TP SCH (10:28)
[2016-12-02] MEDS: NICOTINE 21 MG/24 HOURS TOPICAL PATCH TD SCH (10:28)
--- NOTE | 2016-12-02 11:35 | PN ---
[facility] Progress Note (SOAP) Subjective: agitation anxiety sweats Objective: 12/02/16 11:34 Vital Signs Temperature 98.4 F 12/02/16 10:48 Pulse Rate 77 12/02/16 10:48 Respiratory Rate 18 12/02/16 10:48 Blood Pressure 106/57 12/02/16 10:48 O2 Sat by Pulse Oximetry (%) aaox3 ambulating no acute distress Assessment: 12/02/16 11:34 withdrawal sx Plan: continue detox increase fluids
[2016-12-02] MEDS: ZOLPIDEM TARTRATE 5 MG TABLET PO PRN (22:37)
[2016-12-02] MEDS: THIAMINE HCL 100 MG TABLET (FP) PO SCH (22:37)
[2016-12-02] MEDS: LIDOCAINE PATCH REMOVAL MC SCH (23:04)
[2016-12-03] MEDS: diphenhydrAMINE HCL 50 MG CAPSULE PO PRN (00:54)
[2016-12-03] MEDS ORDERED: diazePAM 5 MG TABLET PO SCH (10:00)
[2016-12-03] MEDS ORDERED: METHADONE HCL 10 MG TABLET (FOR DETOX USE ONLY) PO SCH (10:00)
[2016-12-03] MEDS: PRENATAL VITAMINS W/ FOLIC ACID TABLET (FP) PO SCH (10:37)
[2016-12-03] MEDS: NICOTINE 21 MG/24 HOURS TOPICAL PATCH TD SCH (10:38)
[2016-12-03] MEDS: LIDOCAINE 5% TOPICAL PATCH TP SCH (10:38)
--- NOTE | 2016-12-03 11:56 | PN ---
[facility] Progress Note (SOAP) Subjective: sweats anxiety Objective: 12/03/16 11:55 Vital Signs Temperature 98.4 F 12/03/16 10:43 Pulse Rate 83 12/03/16 10:43 Respiratory Rate 18 12/03/16 10:43 Blood Pressure 92/66 12/03/16 10:43 O2 Sat by Pulse Oximetry (%) AAOx3 ambulating no acute distress Assessment: 12/03/16 11:56 withdrawal sx Plan: continue detox increase fluids d/c in am
[2016-12-03] MEDS: hydrOXYzine PAMOATE 50 MG CAPSULE (FP) PO PRN ×3 (12:44→22:36)
[2016-12-03] MEDS: ZOLPIDEM TARTRATE 5 MG TABLET PO PRN (22:35)
[2016-12-03] MEDS: LIDOCAINE PATCH REMOVAL MC SCH (22:35)
[2016-12-03] MEDS: THIAMINE HCL 100 MG TABLET (FP) PO SCH (22:36)
[2016-12-04] MEDS ORDERED: METHADONE HCL 5 MG TABLET (FOR DETOX USE ONLY) PO SCH (06:00)
[2016-12-04] MEDS: hydrOXYzine PAMOATE 50 MG CAPSULE (FP) PO PRN ×2 (06:04→09:44)
--- NOTE | 2016-12-04 09:36 | DS ---
[facility] Detox Discharge Summary Admission Date: 11/29/16 Discharge Date: 12/04/16 - History Present History: Opioid Dependence, Sedative Dependence - Physical Exam Results Vital Signs: Vital Signs Temperature 97.7 F 12/04/16 06:25 Pulse Rate 65 12/04/16 06:25 Respiratory Rate 16 12/04/16 06:25 Blood Pressure 113/60 12/04/16 06:25 O2 Sat by Pulse Oximetry (%) - Treatment Hospital Course: Detox Protocol Followed, Detoxed Safely, Responded well, Discharged Condition Good, Rehab Referral Accepted - Medication Discharge Medications: Ambulatory Orders Albuterol Sulfate Inhaler - [Ventolin Hfa Inhaler -] 2 inh PO Q4H PRN 04/15/16 - Diagnosis (1) Nicotine dependence Current Visit: Yes Status: Chronic Qualifiers: Nicotine product type: cigarettes Substance use status: in withdrawal Qualified Code(s): F17.213 - Nicotine dependence, cigarettes, with withdrawal (2) Opioid dependence with withdrawal Current Visit: Yes Status: Chronic (3) Sedative, hypnotic or anxiolytic dependence with withdrawal, uncomplicated Current Visit: Yes Status: Chronic (4) Asthma Current Visit: Yes Status: Chronic Qualifiers: Asthma severity: mild intermittent Asthma complication type: uncomplicated Qualified Code(s): J45.20 - Mild intermittent asthma, uncomplicated - AMA Did Patient Leave Against Medical Advice: No
[2016-12-04] MEDS: PRENATAL VITAMINS W/ FOLIC ACID TABLET (FP) PO SCH (09:43)
[2016-12-04] MEDS: LIDOCAINE 5% TOPICAL PATCH TP SCH (10:03)
[2016-12-04 10:43] VITALS: BP 115/73; PULSE 73; TEMP 97.5
== END 2016-12-04 10:00 | disposition home or self-care (01) | DRG 773 ==
LOC: YASAS 12:43 → Y6N 19:00
PROVIDERS: ADMIT Internal Medicine; ATTEND Internal Medicine
PROC: HZ2ZZZZ Detoxification Services for Substance Abuse Treatment (ICD-10-PCS; principal; 2016-11-29)
DX: F11.23 Opioid dependence with withdrawal (principal); F13.230 Sedative, hypnotic or anxiolytic dependence with withdrawal, uncomplicated; F17.213 Nicotine dependence, cigarettes, with withdrawal; F19.24 Other psychoactive substance dependence with psychoactive substance-induced mood disorder; F19.282 Other psychoactive substance dependence with psychoactive substance-induced sleep disorder; F34.1 Dysthymic disorder; J45.20 Mild intermittent asthma, uncomplicated; I49.9 Cardiac arrhythmia, unspecified; E66.9 Obesity, unspecified; Z68.36 Body mass index [BMI] 36.0-36.9, adult; R00.0 Tachycardia, unspecified
CPT/HCPCS: 36415; 80053; 81003; 81015; 85027; 86593; 86803; 87389; 93005; 93010